=== PATIENT | male | born 1970 | race Two or more races ===

== ENCOUNTER 2021-12-12 22:45 | Emergency (ER) | payer MEDICAID ==
[~2021-12-12] VITALS: Ht 177.8 cm; Wt 62.6 kg
[2021-12-12 23:46] LABS: BASOPHILS % 1.4 % (0.0-2.0); EOSINOPHILS % 3.6 % (0.0-5.0); HEMATOCRIT. 46.4 % (42.0-52.0); HEMOGLOBIN. 15.2 g/dL (14.0-18.0); LYMPHOCYTES % 43.7 % (20.0-50.0); MEAN CORPUSCULAR HEMOGLOBIN 30.3 pg (28.0-32.0); MEAN CORPUSCULAR VOLUME 92.2 fL (80.0-94.0); MEAN PLATELET VOLUME 8.3 fl (7.4-10.4); MONOCYTES % 8.4 % (2.0-8.0); NEUTROPHILS % 42.9 % (40.0-76.0); PLATELET 261 x1000/uL (130-400); RED BLOOD CELL COUNT 5.03 mill/uL (4.7-6.1); RED CELL DISTRIBUTION WIDTH 13.8 % (11.6-14.6)
[2021-12-12 23:51] LABS: PROTHROMBIN TIME 10.4 sec (9.6-11.0)
[2021-12-12 23:54] LABS: CHLORIDE 105 mEq/L (98-107)
[2021-12-13 00:04] LABS: ETHANOL BLOOD < 10 mg/dL
[2021-12-13 02:33] LABS: CLARITY URINE CLEAR (CLEAR); COLOR URINE YELLOW (YELLOW); KETONES URINE NEGATIVE (NEGATIVE); LEUKOCYTE ESTERASE URINE NEGATIVE (NEGATIVE); NITRITE URINE NEGATIVE (NEGATIVE); OCCULT BLOOD URINE NEGATIVE (NEGATIVE); PROTEIN URINE NEGATIVE (NEGATIVE); SPECIFIC GRAVITY URINE 1.032 (1.005-1.030)
[2021-12-13] MEDS ORDERED: ACYC200C31 MT (02:44)
[2021-12-13] MEDS ORDERED: P20 MT (02:44)
[2021-12-13] MEDS ORDERED: ACYCLOVIR 400 MG TABLET PO ONE (02:45)
[2021-12-13] MEDS ORDERED: PROP1DRO2 RIGHTEYE (02:45)
[2021-12-13] MEDS ORDERED: PREDNISONE 20MG TABLET PO ONE (02:45)
[2021-12-13 02:46] LABS: *AMPHETAMINES SCREEN URINE NEGATIVE (NEGATIVE); *BARBITURATES SCREEN URINE NEGATIVE (NEGATIVE); *BENZODIAZEPINES SCREEN URINE NEGATIVE (NEGATIVE); *COCAINE SCREEN URINE PRESUMTIVE POSITIVE (NEGATIVE); CANNABINOID URINE SCREEN NEGATIVE (NEGATIVE); METHADONE URINE SCREEN NEGATIVE (NEGATIVE); OPIATES URINE SCREEN NEGATIVE (NEGATIVE); PHENCYCLIDINE URINE SCREEN NEGATIVE (NEGATIVE)
[2021-12-13 02:53] VITALS: BP 145/89
[2021-12-13] MEDS ORDERED: IOHEXOL-350 100 ML BOTTLE ONE (06:04)
== END 2021-12-13 03:43 | disposition home or self-care (01) ==
LOC: ER 22:45
DX: G51.0 Bell's palsy (principal); I10 Essential (primary) hypertension; Z86.73 Personal history of transient ischemic attack (TIA), and cerebral infarction without residual deficits
CPT/HCPCS: 36415; 70450; 70496; 70498; 71045; 80053; 80305; 80320; 81003; 83690; 83880; 84484; 85025; 85610; 86850; 86900; 86901; 93005; 99285; J7512; Q9967; G0480